=== PATIENT | male | born 1975 | race Two or more races ===

== ENCOUNTER 2019-07-05 01:11 | Emergency (ER) | payer OTHER ==
[~2019-07-05] VITALS: Ht 172.7 cm; Wt 74.8 kg
[2019-07-05 01:25] VITALS: BP 145/93
--- NOTE | 2019-07-05 01:26 | NUR ---
ED Nurse Note: Patient walked in to ER due to laceration of his left pinky. Patient presented AAO x4, VSS at this time, skin is warm to touch.
--- NOTE | 2019-07-05 01:28 | Emergency Room Report ---
History of Present Illness General Chief Complaint: Upper Extremity Injury Source: Patient Present Illness HPI Disclaimer: Please note that this report is being documented using DRAGON technology. This can lead to erroneous entry secondary to incorrect interpretation by the dictating instrument. HPI: 43-year-old otherwise healthy male presents for evaluation of laceration to the left pinky. One glass accidentally broken his hand causing laceration over the proximal phalanx. Hemostatic by pressure. Cut occurred several hours ago and the patient went to sleep however woke up with throbbing pain. He was going to the right aid to get some analgesics when the pharmacist told him he should come to the emergency room. Unclear whether or not any shards of the glass broke off. Up-to-date on tetanus. No other injury sustained. Able to flex and extend the digit. Has full sensation. Notes throbbing pain but no active bleeding. No other injury sustained. PMH: Denies PSH: Denies Allergies: Denies Social Hx: Denies drug or alcohol abuse Allergies: Coded Allergies: No Known Allergies (Unverified , 07/05/19) Review of Systems All Other Systems: negative except mentioned in HPI Physical Exam Vital Signs Date Time Temp Pulse Resp B/P (MAP) Pulse Ox O2 Delivery O2 Flow Rate FiO2 07/05/19 01:19 98.4 65 18 145/93 (110) 98 Room Air General: Awake and alert, no acute distress HEENT: NC/AT. EOMI. Resp: Normal work of breathing Skin: There is a 2 cm linear, superficial and clean laceration extending from the volar surface laterally at the distal tip of the proximal phalanx of the pinky finger on the left hand. Hemostatic. No obvious debris. Tender to palpation. MSK: Normal tone and bulk. Moving all extremities. No obvious deformity. Able to flex and extend the digits of the left hand. Neuro: Awake and alert. Mentating appropriately. Two-point discrimination is intact over the radial ulnar aspect of the pinky finger. Procedures Laceration/Wound Repair Laceration/Wound Repair : Consent: Verbal Wound Location: upper extremity - left pinky finger Wound's Depth, Shape: superficial Wound Length (cm): 3 Wound Explored: clean Betadine Prep?: Yes Anesthesia: 1% Lidocaine Volume Anesthetic (ccs): 4 Wound Debrided: None Wound Repaired With: sutures Suture Size/Type: 5:0, proline Number of Sutures: 4 Layer Closure?: No Sterile Dressing Applied?: Yes Complications: None Medical Decision Making Diagnostic Impression: Primary Impression: Laceration of finger of left hand ER Course 43-year-old [id number] male presents for evaluation of axonal laceration to the left pinky finger. X-ray was ordered shows no retained foreign bodies. Wound was cleaned out and well irrigated. Local anesthesia with nerve block, 4 cc 1% lidocaine. 4 simple interrupted sutures placed. No complications. Tolerated procedure well. He will be discharged to follow-up with his PMD for suture removal in 1 week. Discussed reasons to return to the emergency department. He understands and agrees with this treatment plan. Other X-Ray Diagnostic Results Other X-Ray Diagnostic Results : X-Ray ordered: Left hand # of Views/Limited Vs Complete: 2 View Indication: Pain EP Interpretation: Yes Interpretation: other - No foreign bodies Impression: Other - No foreign bodies, fractures or dislocations Electronically Signed by: Electronically signed by Dr. Robert Sanchez Last Vital Signs Date Time Temp Pulse Resp B/P (MAP) Pulse Ox O2 Delivery O2 Flow Rate FiO2 07/05/19 01:19 98.4 65 18 145/93 (110) 98 Room Air Disposition: HOME, SELF-CARE Condition: Improved Robert Sanchez MD Jul 05, 2019 01:28
[2019-07-05] MEDS ORDERED: Lidocaine 1% Plain 30 ml INJ ONE ×2 (02:02→02:15)
--- NOTE | 2019-07-05 02:43 | NUR ---
ED Nurse Note: Pt cleared by health care Provider for discharge. DC instructions/prescription was given and explained to pt and verbalized understanding of teachings. All medical deviecs such as ID band removed. Pt is AAO x4, ambulatory and left with all personal belongings.
--- NOTE | 2019-07-05 15:02 | Diagnostic Imaging Report ---
Indication: Laceration to fourth finger due to wine glass Technique: 2 views left hand Comparison: none Findings: No acute fractures. No dislocations. The joint spaces are preserved. No radiopaque foreign body demonstrated. Impression: Negative
== END 2019-07-05 02:43 | disposition home or self-care (01) ==
LOC: EMR 01:29
DX: S61.217A Laceration without foreign body of left little finger without damage to nail, initial encounter (principal); W25.XXXA Contact with sharp glass, initial encounter; Y92.9 Unspecified place or not applicable
CPT/HCPCS: 12002; 73120; 99283; J2001